=== PATIENT | male | born 1945 | race Caucasian/White ===

== ENCOUNTER 2018-07-08 07:54 | Day surgery (SDC) | payer MEDICARE, MEDICAID ==
[~2018-07-08] VITALS: Ht 172.7 cm; Wt 77.2 kg
[2018-07-08] VITALS (10 sets, daily range): BP systolic 139–173; BP diastolic 58–98
[2018-07-08] MEDS ORDERED: NITR0.4T SL (08:19)
[2018-07-08] MEDS ORDERED: ASPI-10 PO (08:19)
[2018-07-08] MEDS ORDERED: EZET10TA48 PO (08:19)
[2018-07-08] MEDS ORDERED: METO25TA6 PO (08:19)
[2018-07-08] MEDS ORDERED: LOVA40TA2 PO (08:19)
[2018-07-08] MEDS ORDERED: LISI-604 PO (08:19)
[2018-07-08] MEDS ORDERED: normal saline 1,000 ML IV SCH (08:20)
[2018-07-08] MEDS ORDERED: diphenhydrAMINE 25mg capsule PO PRN (08:20)
[2018-07-08] MEDS ORDERED: iohexol 350MG/ML 100ml bottle IV ONE (08:31)
[2018-07-08] MEDS ORDERED: LIDOcaine 1% (10mg/ml)w/preservative injection 20ml MDV ONE (08:31)
[2018-07-08] MEDS ORDERED: iohexol 350 MG/ML 50ML vial IV ONE (08:31)
[2018-07-08] MEDS ORDERED: proCHLORperazine 10 MG/2 ml inj ONE (08:32)
[2018-07-08] MEDS ORDERED: fentaNYL/PF 50MCG/1 ML 2ML syringe ONE (08:32)
[2018-07-08] MEDS ORDERED: midazolam 2 mg/2 ml injection ONE (08:32)
[2018-07-08 08:58] LABS: BASOPHILS % (AUTO) 0.6 % (0-1); EOSINOPHILS # (AUTO) 0.2 X10'3 (0-0.9); EOSINOPHILS % (AUTO) 3.4 % (0-6); HEMATOCRIT 46.1 % (42.0-52.0); HEMOGLOBIN 15.2 g/dl (14.0-17.9); LYMPHOCYTES # (AUTO) 1.2 X10'3 (1.1-4.8); LYMPHOCYTES % (AUTO) 20.2 % (21-51); MEAN CORPUSCULAR HEMOGLOBIN 30.1 PG (27.0-31.0); MEAN CORPUSCULAR VOLUME 91.2 FL (78-98); MONOCYTES # (AUTO) 0.5 X10'3 (0-0.9); MONOCYTES % (AUTO) 8.2 % (2-12); NEUTROPHILS # (AUTO) 4.1 X10'3 (1.8-7.7); NEUTROPHILS % (AUTO) 67.6 % (42-75); PLATELET COUNT 190 X10'3 (140-440); RED BLOOD COUNT 5.05 X10'6 (4.70-6.10); RED CELL DISTRIBUTION WIDTH 13.5 % (11.5-14.5); WHITE BLOOD COUNT 6.1 X10'3 (4.5-11.0)
[2018-07-08 09:19] LABS: ALBUMIN 3.9 G/DL (3.4-5.0); ANION GAP 7 (8-16); BLOOD UREA NITROGEN 21 MG/DL (7-18); CALCIUM 9.2 MG/DL (8.5-10.1); CHLORIDE 105 MMOL/L (99-107); GLUCOSE 120 MG/DL (70-104); MAGNESIUM 2.3 MG/DL (1.5-2.4); POTASSIUM 4.2 MMOL/L (3.5-5.1); SODIUM 142 MMOL/L (135-145); TOTAL CARBON DIOXIDE 30.3 MMOL/L (24-32); eGFR 74 ML/MIN
== END 2018-07-08 13:40 | disposition home or self-care (01) ==
LOC: SSTAY O 07:54
PROVIDERS: ATTEND Internal Medicine Cardiovascular Disease
DX: R94.39 Abnormal result of other cardiovascular function study (principal); I35.0 Nonrheumatic aortic (valve) stenosis; I73.9 Peripheral vascular disease, unspecified; I71.4 Abdominal aortic aneurysm, without rupture; I10 Essential (primary) hypertension; E78.5 Hyperlipidemia, unspecified
CPT/HCPCS: 36415; 80048; 83735; 85025; 85610; 93005; 93460; 99152; 99153; A6257; J0780; J1644; J2001; J2250; J3010; J7030; Q9967; A4620; C1760; C1769; C1894